=== PATIENT | female | born 1975 | race Caucasian/White ===

== ENCOUNTER → 2018-08-16 | Outpatient (CLI) | payer OTHER ==
--- NOTE | 2018-08-16 20:28 | MR ---
EXAMINATION TYPE: MR shoulder LT wo con DATE OF EXAM: 08/16/2018 COMPARISON: None HISTORY: Lt shoulder pain x 4 mos TECHNIQUE: Multiplanar, multisequence imaging of the left shoulder is performed without contrast. FINDINGS: Rotator Cuff: Rotator cuff appears intact. There is some very minimal fluid in the subacromial bursa. This could be related to mild tendinosis of the supraspinatus tendon. Small perforation is not exclu ded. Acromioclavicular Joint: No significant hypertrophy. Glenohumeral Joint: Humeral head articulates with the glenoid. Labrum: The labrum appears grossly intact given limitation of non-arthrogram study. Biceps Tendon: The long head of biceps is in normal location within bicipital groove. Some minimal fl uid surrounds the long head of the biceps tendon. Some mild tendinosis may be present. Bone marrow signal: No focal abnormal marrow signal is appreciated. Other: No additional significant abnormality is appreciated. IMPRESSION: 1. Mild tendinosis of the supraspinatus tendon and long head of the biceps tendon. 2. No rotator cuff tendon tear is identified
== END ==
LOC: RADMRIMAIN 18:27
PROVIDERS: ATTEND Orthopaedic Surgery
DX: M75.82 Other shoulder lesions, left shoulder (principal)

== ENCOUNTER → 2019-01-22 | Outpatient (CLI) | payer OTHER | END | disposition home or self-care (01) | LOC: LABPAT 16:23 | PROVIDERS: ATTEND Orthopaedic Surgery | DX: Z53.9 Procedure and treatment not carried out, unspecified reason (principal) ==

== ENCOUNTER → 2019-01-22 | Outpatient (CLI) | payer OTHER ==
[2019-01-22 17:34] LABS: Basophils % (A) 0 %; Eosinophils # (A) 0.1 k/uL (0-0.7); Eosinophils % (A) 2 %; HCT 37.4 % (34.0-46.0); HGB 12.5 gm/dL (11.4-16.0); Lymphocytes # (A) 1.2 k/uL (1.0-4.8); Lymphocytes % (A) 26 %; MCH 30.7 pg (25.0-35.0); MCHC 33.4 g/dL (31.0-37.0); MCV 91.8 fL (80.0-100.0); Mean Platelet Volume 7.8; Monocytes # (A) 0.3 k/uL (0-1.0); Monocytes % (A) 5 %; Neutrophils # (A) 3.2 k/uL (1.3-7.7); Neutrophils % (A) 65 %; Platelet Count 231 k/uL (150-450); RBC 4.07 m/uL (3.80-5.40); RDW 14.5 % (11.5-15.5); WBC 4.9 k/uL (3.8-10.6)
[2019-01-23 01:29] LABS: African American GFR (CKD) 130.3 (60.0-200.0); Albumin 4.2 g/dL (3.80-4.90); Albumin/Globulin Ratio 2.47 (1.60-3.17); Anion Gap 5.8 mmol/L (4.00-12.00); BUN/Creat Ratio 16.67 Ratio (12.00-20.00); Calcium 9.2 mg/dL (8.7-10.3); Carbon Dioxide 26.2 mmol/L (21.6-31.8); Globulin 1.7 g/dL (1.6-3.3); Potassium 4.6 mmol/L (3.5-5.5); Total Bilirubin 0.2 mg/dL (0.2-1.2); Total Protein 5.9 g/dL (6.2-8.2)
== END | disposition home or self-care (01) ==
LOC: LABWHC1 16:26
PROVIDERS: ATTEND Family Medicine
DX: E03.9 Hypothyroidism, unspecified (principal)
CPT/HCPCS: 36415; 80053; 84439; 84443; 85025

== ENCOUNTER 2019-01-24 09:13 | Day surgery (SDC) | payer OTHER ==
[2019-01-22 13:48] VITALS: BMI 24.2
--- NOTE | 2019-01-23 17:32 | HP ---
HISTORY AND PHYSICAL REASON FOR ADMISSION: Surgery scheduled for 01/24/2019 Dima Fritz is a 43-year-old patient seen with progressive left shoulder pain. After having treatment options discussed, patient elected to proceed with left shoulder arthroscopy. Consent regarding the procedure was obtained. PAST MEDICAL HISTORY: Hypothyroidism. PAST SURGICAL HISTORY: Tonsillectomy. MEDICATIONS: Synthroid. ALLERGIES: None. SOCIAL HISTORY: Patient denies current tobacco use. PHYSICAL EVALUATION OF THE LEFT SHOULDER: Flexion is 150 degrees, abduction is 140 degrees, external rotation 0 with weakness, tenderness along the anterior lateral acromion rotator cuff insertion site. Impingement sign is positive at 90 degrees. Distal neurovascular exam is intact. RADIOGRAPHS: Radiographs of the left shoulder revealed a now sloping lateral acromion. MRI left shoulder revealed rotator cuff and biceps tendinosis. IMPRESSION: 1. Left shoulder impingement with rotator cuff tendinosis. 2. Left shoulder biceps tendinosis. 3. Left shoulder adhesive capsulitis. PLAN: Left shoulder arthroscopy with subacromial decompression, possible arthroscopic rotator cuff repair, possible biceps tenotomy and debridement. Surgery scheduled for 01/24/2019. MMODL / IJN: [id number] /
[~2019-01-24 09:13] MED LIST: DEXAMETHASONE SOD PHOSPHATE 10 MG/ML 1 ML VIAL IV ONE; HYDROmorphone 0.5 MG/0.5 ML SYRINGE IVP PRN; KETOROLAC 30 MG/ML 1 ML VIAL IVP SCH; LIDOCAINE 1% 20 ML VIAL (10MG/ML) FOR IV START INTRADERMA PRN; ONDANSETRON 4 MG/2 ML VIAL IVP ONE; ONDANSETRON 4 MG/2 ML VIAL IVP PRN; SCOPOLAMINE 1.5MG/72HR PATCH TRANSDERM ONE
[2019-01-24] MEDS: LACTATED RINGERS 1,000 ML IV SCH ×2 (09:50→13:24)
[2019-01-24] MEDS ORDERED: MIDAZOLAM (PF) 2 MG/2 ML VIAL IV ONE (10:19)
[2019-01-24] MEDS ORDERED: fentaNYL (PF) 50 MCG/ML 2 ML AMP ONE (11:18)
[2019-01-24] MEDS ORDERED: ROPIVACAINE 5 MG/ML 30 ML VIAL ONE (11:18)
[2019-01-24] MEDS ORDERED: SUCCINYLCHOLINE CHLORIDE 100 MG/5 ML SYR IV ONE (11:18)
[2019-01-24] MEDS ORDERED: LIDOCAINE 2%-EPI 1:100,000 20 ML VIAL ONE (11:18)
[2019-01-24] MEDS ORDERED: LIDOCAINE 1% INJ 10MG/ML (20 ML MDV) ONE (11:18)
[2019-01-24] MEDS ORDERED: PROPOFOL 10 MG/ML 20 ML VIAL IV ONE (11:18)
[2019-01-24 12:34] VITALS: TEMP 97.5
--- NOTE | 2019-01-24 12:34 | P.OP ---
Date of Procedure: 01/24/19 Preoperative Diagnosis: Left shoulder impingement Postoperative Diagnosis: 1. Left shoulder impingement 2. Left shoulder partial long head biceps tendon tear 3. Left shoulder adhesive capsulitis 4. Left shoulder superficial rotator cuff tear 5. Left shoulder labral tear Procedure(s) Performed: 1. Left shoulder arthroscopic subacromial decompression 2. Left shoulder arthroscopic biceps tenotomy 3. Left shoulder arthroscopic lysis of adhesions 4. Left shoulder arthroscopic debridement superficial rotator cuff tear 5. Left shoulder arthroscopic debridement labral tear Anesthesia: GETA, regional (Interscalene catheter/block) Surgeon: John Neely Estimated Blood Loss (ml): 10 Pathology: none sent Condition: stable Disposition: PACU Indications for Procedure: 43-year-old patient seen with progressive left shoulder pain. After having treatment options discussed, she elected to proceed with arthroscopy. Operative Findings: See description of procedure Description of Procedure: Patient underwent an interscalene block/catheter by department of anesthesia for postoperative management. The patient was then taken to the operative suite. The patient underwent a general anesthetic by the department of anesthesia. The patient was placed into a lateral position and secured. There was appropriate padding of the bony prominence. Left shoulder was then prepped and draped in normal sterile orthopedic fashion. We placed the extremity in 10 pounds of longitudinal traction. A posterior incision was now made for a posterior working portal site. The trocar and cannula were inserted into the glenohumeral joint. Arthroscopy was initiated. Spinal needle was now inserted anteriorly, to ascertain the anterior working portal site. An incision was now made in that area, a trocar was inserted followed by a probe. There was superficial tearing of the superior labrum. There was partial tearing as well as some hyperemia of the long head biceps tendon. The remainder of the labrum appeared stable. The glenohumeral joint appeared stable with no evidence of significant chondromalacia. There did appear to be a fair amount of adhesions along the anterior joint area. I now performed a lysis of the adhesions. I performed an arthroscopic biceps tenotomy. I debrided the superficial labral tear down to stable labral tissue. The residual labrum was probed and found to be stable. Instruments now removed from the glenohumeral joint. Utilizing the posterior working portal site, the trocar and cannula were inserted into the subacromial space. Arthroscopy initiated. I made an incision 2 fingerbreadths lateral to the acromion. I introduced my trocar followed by my ArthroCare ablator. I now began ablating thick subacromial bursal tissue, which exposed the undersurface of the anterior acromion. There was diminished subacromial space. There was a very prominent anterior acromion. A motorized bur was introduced and a subacromial decompression was performed. I also excised some osteophytes off the inferior aspect of the distal clavicle. The AC joint was visualized and noted to be moderately arthritic. I did not think enough toward a Maegan procedure. There was some superficial tearing along the distal supraspinatus tendon area. I used a motorized shaver and debrided that area. I now thoroughly probed the area and did not find any evidence for full-thickness tear perforation. I injected 1 mL Renue intra-articular. Instruments now removed from the portal sites. All portal sites were approximated with nylon suture. Sterile dressings were applied followed by a shoulder sling. The patient was awakened, transferred to a bed, and taken to recovery in stable condition.
[2019-01-24] MEDS ORDERED: ROPIVACAINE 1,100 MG, SODIUM CHLORIDE 0.9% 500 ML 330 ML MISCELLANE PRN ×2 (12:57)
[2019-01-24 14:16] VITALS: RESP 16
[2019-01-24 15:04] VITALS: BP 125/74; PULSE 74
--- NOTE | 2019-01-25 07:11 | P.ANPRN ---
Procedure Note - Anesthesia - Nerve Block Performed Left Interscalene Infusion Time Out Performed: Yes Date of Procedure: 01/24/19 Procedure Start Time: : Procedure Stop Time: :43 Location of Patient Procedure: PreOp Indication: Acute Post-Operative Pain, Requested by physician Sedation Type: Sedate with meaningful contact maintained Preparation: Sterile Prep, Sterile Dressing Position: Supine Catheter: Indwelling Needle Types: On-Q Needle Gauge: 18 Technique: Ultrasound (ropi .5% 25cc plus dexamethasone 4mg) Blood Aspirated: No Pain Paresthesia on Injection Noted: No Resistance on Injection: Normal Events: Uneventful and Well Tolerated
== END 2019-01-24 15:05 | disposition home or self-care (01) ==
LOC: OR 09:13
PROVIDERS: ATTEND Orthopaedic Surgery
DX: M75.102 Unspecified rotator cuff tear or rupture of left shoulder, not specified as traumatic (principal); M75.02 Adhesive capsulitis of left shoulder; S46.112A Strain of muscle, fascia and tendon of long head of biceps, left arm, initial encounter; S43.432A Superior glenoid labrum lesion of left shoulder, initial encounter; X58.XXXA Exposure to other specified factors, initial encounter; M25.712 Osteophyte, left shoulder; E03.9 Hypothyroidism, unspecified; Z79.890 Hormone replacement therapy
CPT/HCPCS: 29823; 64415; 81025; C1765; J1100; J2405; J0690; J2001; J3010; J2795; J0330; J2704; J2250

== ENCOUNTER → 2019-12-18 | Outpatient (CLI) | payer OTHER | END | disposition home or self-care (01) | LOC: LABWHC1 10:08 | PROVIDERS: ATTEND Family Medicine | DX: J30.2 Other seasonal allergic rhinitis (principal); J30.9 Allergic rhinitis, unspecified ==

== ENCOUNTER → 2021-05-03 | Outpatient (CLI) | payer OTHER ==
--- NOTE | 2021-05-05 08:08 | MM ---
Reason for exam: screening (asymptomatic). Baseline mammogram. History: Patient is nulliparous. Family history of breast cancer in maternal grandmother at age 60. Physical Findings: Nurse did not find any significant physical abnormalities on exam. MG Screening Mammo w CAD Bilateral CC and MLO view(s) were taken. The breast tissue is heterogeneously dense. This may lower the sensitivity of mammography. There is no discrete abnormality. ASSESSMENT: Negative, BI-RAD 1 RECOMMENDATION: Routine screening mammogram of both breasts in 1 year. Patient should continue monthly self breast exams. A negative report should not preclude additional follow up of suspicious palpable abnormalities.
== END | disposition home or self-care (01) ==
LOC: RADMAMWWP 12:50
PROVIDERS: ATTEND Family Medicine
DX: Z12.31 Encounter for screening mammogram for malignant neoplasm of breast (principal)
CPT/HCPCS: 77067

== ENCOUNTER → 2021-05-29 | Outpatient (CLI) | payer OTHER ==
[2021-05-29 09:28] LABS: Anisocytosis Slight; Basophils % (A) 1 %; Eosinophils # (A) 0.1 k/uL (0-0.7); Eosinophils % (A) 3 %; HCT 39.2 % (34.0-46.0); HGB 12.6 gm/dL (11.4-16.0); Lymphocytes # (A) 1.2 k/uL (1.0-4.8); Lymphocytes % (A) 38 %; MCH 29.1 pg (25.0-35.0); MCHC 32.2 g/dL (31.0-37.0); MCV 90.5 fL (80.0-100.0); Monocytes # (A) 0.2 k/uL (0-1.0); Monocytes % (A) 5 %; Neutrophils # (A) 1.6 k/uL (1.3-7.7); Neutrophils % (A) 51 %; Platelet Count 204 k/uL (150-450); RBC 4.33 m/uL (3.80-5.40); RDW 16.1 % (11.5-15.5); WBC 3.2 k/uL (3.8-10.6)
== END | disposition home or self-care (01) ==
LOC: LABPAT 08:42
PROVIDERS: ATTEND Obstetrics & Gynecology Obstetrics
DX: Z01.812 Encounter for preprocedural laboratory examination (principal); N92.0 Excessive and frequent menstruation with regular cycle
CPT/HCPCS: 36415; 85025

== ENCOUNTER 2021-06-01 07:25 | Day surgery (SDC) | payer OTHER ==
[2021-05-28 14:57] VITALS: BMI 25.8
[~2021-06-01 07:25] MED LIST changes: -DEXAMETHASONE SOD PHOSPHATE 10 MG/ML 1 ML VIAL IV ONE; -HYDROmorphone 0.5 MG/0.5 ML SYRINGE IVP PRN; -KETOROLAC 30 MG/ML 1 ML VIAL IVP SCH; -LIDOCAINE 1% 20 ML VIAL (10MG/ML) FOR IV START INTRADERMA PRN; -ONDANSETRON 4 MG/2 ML VIAL IVP ONE; -ONDANSETRON 4 MG/2 ML VIAL IVP PRN; +Pre Op ABX Message 1 EACH MISC MISCELLANE ONE; -SCOPOLAMINE 1.5MG/72HR PATCH TRANSDERM ONE
[2021-06-01] MEDS ORDERED: LACTATED RINGERS 1,000 ML IV SCH (07:31)
[2021-06-01] MEDS ORDERED: DEXAMETHASONE SOD PHOSPHATE 4 MG/ML 1 ML VIAL IV ONE (07:31)
[2021-06-01] MEDS ORDERED: LIDOCAINE 1% (10MG/ML) FOR IV START INTRADERMA PRN (07:31)
[2021-06-01] MEDS ORDERED: HYDROmorphone 0.5 MG/0.5 ML SYRINGE IVP PRN (07:31)
[2021-06-01] MEDS ORDERED: MIDAZOLAM 2 MG/2 ML VIAL IV PRN (07:31)
[2021-06-01] MEDS ORDERED: ONDANSETRON 4 MG/2 ML VIAL IVP ONE (07:31)
[2021-06-01] MEDS ORDERED: LIDOCAINE 1% INJ 10MG/ML (20 ML MDV) ONE (08:48)
[2021-06-01] MEDS ORDERED: fentaNYL (PF) 50 MCG/ML 2 ML AMP ONE (08:48)
[2021-06-01] MEDS ORDERED: PROPOFOL 10 MG/ML 20 ML VIAL IV ONE (08:48)
[2021-06-01] MEDS ORDERED: KETOROLAC 15 MG/ML 1 ML VIAL ONE (08:48)
--- NOTE | 2021-06-01 09:27 | P.OP ---
Date of Procedure: 06/01/21 Preoperative Diagnosis: Menorrhagia Postoperative Diagnosis: Same plus endometrial polyp Procedure(s) Performed: Hysteroscopy, dilation and curettage, endometrial ablation with NovaSure Anesthesia: MAC Surgeon: Ella Zamora Estimated Blood Loss (ml): 5 IV fluids (ml): 600 Urine output (ml): 50 Pathology: other (Endometrial curettings) Condition: stable Disposition: PACU Indications for Procedure: Heavy menstrual bleeding Operative Findings: Normal-appearing endometrial cavity, proliferative in nature, endometrial polyp was appreciated Description of Procedure: Patient was taken back to the operating suite where general anesthesia was obtained without difficulty by the anesthesia department. She was prepped and draped in the normal sterile fashion in the dorsal lithotomy position. A red rubber catheter was used to drain the bladder of clear yellow urine. A weighted speculum was placed in the posterior vaginal vault, the anterior lip of the cervix was visualized and grasped with a single-tooth tenaculum. The endocervical canal was then serially dilated. Hysteroscope was placed through the cervix and toward the endometrial cavity, an intact cavity was appreciated with a proliferative endometrium and an endometrial polyp. Pictures were taken and hysteroscope was removed. A sharp curettage was performed until gritty texture was noted in all 4 quadrants of the endometrial cavity. The specimen was then sent to pathology for analysis. At this time the NovaSure device was opened and set to the appropriate measurements for this patient's uterus a kandi th of 5 width of 3.3 a power of 91. After cavity assessment was passed cycle was allowed to complete for 56 seconds. After the cycle was complete the device was removed without difficulty. The single-tooth tenaculum was taken off of the anterior lip of the cervix hemostasis was appreciated. All counts were noted be correct 2 at the end of the procedure. Patient tolerated procedure well and w as taken the recovery room awake in stable condition.
[2021-06-01 09:37] VITALS: TEMP 96.8
[2021-06-01] MEDS ORDERED: LACTATED RINGERS 1,000 ML IV ONE (10:31)
[2021-06-01 10:48] VITALS: RESP 16
[2021-06-01 11:01] VITALS: BP 113/69; PULSE 57
== END 2021-06-01 11:28 | disposition home or self-care (01) ==
LOC: OR 07:25
PROVIDERS: ATTEND Obstetrics & Gynecology Obstetrics
DX: N92.0 Excessive and frequent menstruation with regular cycle (principal); N84.0 Polyp of corpus uteri
CPT/HCPCS: 58563; 88305; J2250; J1100; J2405; J2001; J3010; J1885; J2704; J1170

== ENCOUNTER 2022-07-11 07:54 | Day surgery (SDC) | payer OTHER ==
[2022-07-07 10:41] VITALS: BMI 25.8
[2022-07-11] MEDS ORDERED: LIDOCAINE 1% (10MG/ML) FOR IV START INTRADERMA PRN (08:07)
[2022-07-11 08:13] VITALS: TEMP 96.9
[2022-07-11] MEDS: LACTATED RINGERS 1,000 ML IV SCH ×2 (08:16→09:53)
[2022-07-11] MEDS ORDERED: PROPOFOL 10 MG/ML 20 ML VIAL IV ONE (09:54)
[2022-07-11] MEDS ORDERED: LIDOCAINE 2% INJ 20 MG/ML (2 ML VIAL) ONE (09:54)
--- NOTE | 2022-07-11 10:05 | P.PCN ---
Date of Procedure: 07/11/22 Procedure(s) Performed: BRIEF HISTORY: Patient is a 47-year-old, pleasant, white female scheduled for an upper endoscopy as a part of evaluation of positive serologies for celiac disease. She is been having some abdominal bloating and fatigue and as a part of workup was noted to have positive serology for celiac disease.. PROCEDURE PERFORMED: Esophagogastroduodenoscopy with biopsy. PREOPERATIVE DIAGNOSIS: Positive serology for celiac disease. IV sedation per anesthesia. PROCEDURE: After informed consent was obtained, the patient was brought into the endoscopy unit. IV sedation was administered by Anesthesia under continuous monitoring. Initially the Olympus GIF-140 video endoscope was inserted into the mouth. Esophagus intubated without any difficulty. It was gradually advanced into the stomach and duodenum and carefully examined. The bulb and the second part of the duodenum appeared normal. Multiple biopsies were done from the duodenum to evaluate for celiac disease. The scope at this time was withdrawn to the stomach, adequately insufflated with air, and upon careful examination, mucosa of the antrum, had patchy areas of erythema and biopsies were done from this area. Mucosa of the body, cardia and the fundus appeared normal. The scope was then withdrawn into the esophagus. The GE junction was located at 39 cm from the incisors. The esophagus appeared normal. There were no erosions or ulcerations seen and the patient tolerated the procedure well. IMPRESSION: 1. Normal-appearing duodenum status post multiple biopsies to rule out celiac disease. 2. Mild antral gastritis. RECOMMENDATIONS: The findings of this examination were discussed with the patient as well as a family. She was advised to follow with the biopsy results. Follow up in office as needed..
[2022-07-11 10:29] VITALS: BP 110/75; PULSE 75; RESP 16
== END 2022-07-11 10:42 | disposition home or self-care (01) ==
LOC: ORWHC2ENDO 07:54
PROVIDERS: ATTEND Internal Medicine Gastroenterology
DX: D72.820 Lymphocytosis (symptomatic) (principal); K29.50 Unspecified chronic gastritis without bleeding; K90.0 Celiac disease; E07.9 Disorder of thyroid, unspecified; Z79.890 Hormone replacement therapy; Z90.49 Acquired absence of other specified parts of digestive tract; Z79.899 Other long term (current) drug therapy
CPT/HCPCS: 81025; 43239; J2704; J2001; 88305

== ENCOUNTER → 2024-01-22 | Outpatient (CLI) | payer BC ==
--- NOTE | 2024-01-25 13:36 | MM ---
Reason for Exam: Screening (asymptomatic). Last mammogram was performed 2 year(s) and 9 month(s) ago. Patient History: Menarche at age 14. Patient has no children. Maternal grandmother had breast cancer, age 60. Risk Values: Charity 5 year model risk: 1.0%. NCI Lifetime model risk: 10.3%. Prior Study Comparison: 05/03/2021 Bilateral Screening Mammogram, [facility]. Tissue Density: The breasts are heterogeneously dense, which may obscure small masses. Findings: Analyzed By CAD. Right breast: There is no suspicious group of microcalcifications or new suspicious mass. Left breast: There is no suspicious group of microcalcifications or new suspicious mass. Overall Assessment: Negative, BI-RAD 1 Management: Screening Mammogram of both breasts in [address] [facility] will attempt to contact patient to return for supplemental views and ultrasound if indicated. Patient should continue monthly self-breast exams. A clinical breast exam by your physician is recommended on an annual basis. This exam should not preclude additional follow-up of suspicious palpable abnormalities. Note on Charity scores and lifetime risk: 1. A Charity score greater than 3% is considered moderate risk. If this is the case, consider specialist referral to assess eligibility for a risk reducing agent. 2. If overall lifetime risk for the development of breast cancer is 20% or higher, the patient may qualify for future screening with alternating mammogram and breast MRI. Electronically signed and approved by: Suhas Samson DO
== END | disposition home or self-care (01) ==
LOC: RADMAMWWP 07:37
PROVIDERS: ATTEND Family Medicine
DX: Z12.31 Encounter for screening mammogram for malignant neoplasm of breast (principal); Z80.3 Family history of malignant neoplasm of breast
CPT/HCPCS: 77067